=== PATIENT | male | born 1970 | race Caucasian/White ===

== ENCOUNTER 2021-07-19 10:24 | Emergency (ER) | payer OTHER ==
[2021-07-19] MEDS ORDERED: PRINIVIL10 MG PO (11:17)
[2021-07-19] MEDS ORDERED: CLEOCIN300 MG PO (11:17)
== END 2021-07-19 11:36 | disposition home or self-care (01) ==
LOC: FER 10:24
DX: K04.7 Periapical abscess without sinus (principal); I10 Essential (primary) hypertension
CPT/HCPCS: 99283; J1885